=== PATIENT | female | born 1995 | race African-American/Black ===

== ENCOUNTER 2017-05-15 10:43 | Emergency (ER) | payer OTHER ==
[~2017-05-15] VITALS: Ht 165.1 cm; Wt 55.0 kg
[2017-05-15 10:53] VITALS: BP 105/57; PULSE 110; RESP 18; TEMP 97.7; O2SAT 98
[2017-05-15] MEDS ORDERED: levETIRAcetam 1000 MG INJ 100 ML IV ONE (11:45)
[2017-05-15 12:00] LABS: AUTOMATED NEUTROPHIL # 11.3 TH/MM3 (1.8-7.7); BASOPHIL % 0.2 % (0.0-2.0); EOSINOPHIL # 0.1 TH/MM3 (0-0.4); EOSINOPHIL % 0.6 % (0.0-4.0); HEMATOCRIT 38.5 % (35.0-46.0); LYMPH % 30.4 % (9.0-44.0); LYMPHOCYTE # 5.9 TH/MM3 (1.0-4.8); MEAN CELL VOLUME 89.8 FL (80.0-100.0); MEAN CORPUSCULAR HEMOGLOBIN 29.7 PG (27.0-34.0); MONO % 10.4 % (0.0-8.0); NEUT % 58.4 % (16.0-70.0); PLATELET COUNT 215 TH/MM3 (150-450); RED BLOOD COUNT 4.29 MIL/MM3 (4.00-5.30); RED CELL DISTRIBUTION WIDTH 14.2 % (11.6-17.2); WHITE BLOOD COUNT 19.3 TH/MM3 (4.0-11.0)
[2017-05-15 12:03] LABS: HEMO FLAGS AUTO DIFF
[2017-05-15 12:15] LABS: ALKALINE PHOSPHATASE 75 U/L (45-117); ALT (GPT) 20 U/L (10-53); ANION GAP 13 MEQ/L (5-15); AST (GOT) 16 U/L (15-37); BICARBONATE 21.8 MEQ/L (21.0-32.0); BLOOD UREA NITROGEN 15 MG/DL (7-18); CHLORIDE 102 MEQ/L (98-107); GLOMERULAR FILTRATION RATE 77 ML/MIN (>89); SODIUM (NA) 137 MEQ/L (136-145); TOTAL BILIRUBIN ADULT 0.5 MG/DL (0.2-1.0)
[2017-05-15 12:18] LABS: POTASSIUM 2.9 MEQ/L (3.5-5.1)
[2017-05-15] MEDS ORDERED: SODIUM CHLOR 0.9% 1000 ML INJ 1,000 ML IV SCH (12:45)
[2017-05-15] MEDS ORDERED: LEVE500 PO (12:50)
--- NOTE | 2017-05-15 12:50 | PD ---
HPI Chief Complaint: Seizure Time Seen by Provider: 11:14 Travel History International Travel<30 days: No Contact w/Intl Traveler<30days: No Traveled to known affect area: No History of Present Illness HPI This is a 22-year-old female who presents to the emergency department having had a seizure witnessed by her boyfriend. She says she was feeling fine leading up to the seizure. She had worked all night and was getting into bed and she had a generalized tonic-clonic seizure. She did bite the right side of her tongue. She didn't lose her bladder. Her back in October and she was hospitalized and had a reassuring workup except that she tested positive for cannabinoid that time. She wasn't discharged on any antiepileptic medications. She says that since then she had one episode that she thinks was a seizure but it was mild so she didn't come to the hospital. Currently she feels back to normal, denies any fevers or chills and denies any pain. PFSH Past Medical History Blood Disorders: No Cancer: No Cardiovascular Problems: No Endocrine: No Genitourinary: No Immune Disorder: No Musculoskeletal: No Neurologic: No Psychiatric: No Reproductive: No Respiratory: No Immunizations Current: Yes Seizures: Yes ?: Not LMP: 04/24/17 Social History Alcohol Use: No Tobacco Use: No Substance Use: No Allergies-Medications (Allergen,Severity, Reaction): Coded Allergies: No Known Allergies (Verified , 05/15/17) Reported Meds & Prescriptions Reported Meds & Active Scripts Active No Active Prescriptions or Reported Medications Review of Systems Except as stated in HPI: all other systems reviewed are Neg Physical Exam Narrative GENERAL:Well appearing, no acute distress SKIN: Focused skin assessment warm and dry. HEAD: Atraumatic. Normocephalic. EYES: Pupils equal and round. No injection or drainage. ENT: Moist mucous membranes NECK: Trachea midline. CARDIOVASCULAR: Regular rate and rhythm. No murmur appreciated. RESPIRATORY: Clear to auscultation. Breath sounds equal bilaterally. GASTROINTESTINAL: Abdomen soft, non-tender, nondistended. MUSCULOSKELETAL: No obvious deformities. NEUROLOGICAL: Awake and alert. No obvious cranial nerve deficits. Moving all extremities. PSYCHIATRIC: Appropriate mood and affect; insight and judgment normal. Data Data Last Documented VS Vital Signs Date Time Temp Pulse Resp B/P (MAP) Pulse Ox O2 Delivery O2 Flow Rate FiO2 05/15/17 10:53 97.7 110 18 105/57 (73) 98 Room Air Orders Orders Complete Blood Count With Diff (05/15/17 11:31) Comprehensive Metabolic Panel (05/15/17 11:31) ^ Insert Iv (05/15/17 11:31) Levetiracetam 1000 Mg Inj (Keppra 1000 M (05/15/17 11:45) Urinalysis - C+S If Indicated (05/15/17 12:31) Sodium Chlor 0.9% 1000 Ml Inj (Ns 1000 M (05/15/17 12:45) Labs Laboratory Tests Test 05/15/17 11:37 05/15/17 12:35 White Blood Count 19.3 TH/MM3 Red Blood Count 4.29 MIL/MM3 Hemoglobin 12.7 GM/DL Hematocrit 38.5 % Mean Corpuscular Volume 89.8 FL Mean Corpuscular Hemoglobin 29.7 PG Mean Corpuscular Hemoglobin Concent 33.0 % Red Cell Distribution Width 14.2 % Platelet Count 215 TH/MM3 Mean Platelet Volume 10.3 FL Neutrophils (%) (Auto) 58.4 % Lymphocytes (%) (Auto) 30.4 % Monocytes (%) (Auto) 10.4 % Eosinophils (%) (Auto) 0.6 % Basophils (%) (Auto) 0.2 % Neutrophils # (Auto) 11.3 TH/MM3 Lymphocytes # (Auto) 5.9 TH/MM3 Monocytes # (Auto) 2.0 TH/MM3 Eosinophils # (Auto) 0.1 TH/MM3 Basophils # (Auto) 0.0 TH/MM3 CBC Comment AUTO DIFF Blood Urea Nitrogen 15 MG/DL Creatinine 1.08 MG/DL Random Glucose 128 MG/DL Total Protein 7.9 GM/DL Albumin 4.1 GM/DL Calcium Level 8.7 MG/DL Alkaline Phosphatase 75 U/L Aspartate Amino Transf (AST/SGOT) 16 U/L Alanine Aminotransferase (ALT/SGPT) 20 U/L Total Bilirubin 0.5 MG/DL Sodium Level 137 MEQ/L Potassium Level 2.9 MEQ/L Chloride Level 102 MEQ/L Carbon Dioxide Level 21.8 MEQ/L Anion Gap 13 MEQ/L Estimat Glomerular Filtration Rate 77 ML/MIN MDM Medical Decision Making Medical Screen Exam Complete: Yes Emergency Medical Condition: Yes Interpretation(s) Afebrile, tachycardic, normotensive Vital signs rechecked after 2 hours of observation, tachycardia has resolved and patient continues to be afebrile Leukocytosis of 19 with 58% neutrophils, I suspect this is a stress response Hypokalemia Glucose is 128 Differential Diagnosis Seizure, electrolyte abnormality, meningitis, encephalitis Narrative Course This is a 22-year-old female who presents to the emergency department having had a seizure witnessed by her boyfriend. Currently she feels back to normal. She has no infectious symptoms and she has a benign neurologic exam. Labs are obtained which demonstrate a leukocytosis. I rechecked her vital signs twice and she continues to be afebrile and her tachycardia from initial presentation resolved. Urinalysis is negative for infection. Patient was given IV fluids and was given a dose of Keppra. I think given this is her third seizure it's reasonable to start her on Keppra and have her follow-up with a neurologist. I reconfirmed to her that she can't drive. I asked her to return to the emergency department if she feels worse or she develops a fever. I don't see any sign of meningitis or encephalitis at this time. Diagnosis Primary Impression: Seizure Referrals: [facility] Patient Instructions: General Instructions Med/Other Pt SpecificInfo: Prescription(s) given Scripts Levetiracetam (Keppra) 500 Mg Tab 500 MG PO BID for Control Seizures, #60 TAB 0 Refills Prov: Lisa Mckenna MD 05/15/17 Disposition: 01 DISCHARGE HOME Condition: Stable Lisa Mckenna MD May 15, 2017 12:50
[2017-05-15 12:51] LABS: BLOOD, URINE NEG (NEG); COMMENT (UR) CULT NOT INDICATED; CULTURE IF INDICATED CULT NOT INDICATED; GLUCOSE,URINE NEG (NEG); KETONE, URINE TRACE mg/dL (NEG); NITRITE,URINE NEG (NEG); SQUAMOUS EPITHELIAL CELL URINE 3 /hpf (0-5); URINE COLOR LIGHT-YELLOW (YELLW/STRAW)
[2017-05-15 12:56] LABS: NEUTROPHIL # MANUAL DIFF 10.4 TH/MM3 (1.8-7.7); PLATELET ESTIMATE SMEAR NORMAL (NORMAL); PLATELET MORPHOLOGY NORMAL (NORMAL); POLYS (SEG NEUTROPHILS) 54 % (16-70); SCAN/DIFF FINAL DIFF MANUAL; WBC DIFF SAMPLE 100
== END 2017-05-15 14:07 | disposition home or self-care (01) ==
LOC: NEPD 10:43
DX: R56.9 Unspecified convulsions (principal)
CPT/HCPCS: 80053; 81001; 85007; 85027; 96361; 96365; 99284; J1953; J7030